=== PATIENT | female | born 1955 ===

== ENCOUNTER 2024-07-18 09:08 | Emergency (ER) | payer OTHER ==
[~2024-07-18] VITALS: Ht 160 cm; Wt 74.8 kg
[~2024-07-18 09:08] MED LIST: ACET500 PO; Cyclobenzaprine5 MG PO; IBUP400 PO
[2024-07-18 09:59] VITALS: BP 153/99
[2024-07-18] MEDS ORDERED: Ibuprofen 600 MG Tab PO ONE (10:05)
[2024-07-18] MEDS ORDERED: Acetaminophen 500 MG Tab PO ONE (10:05)
== END 2024-07-18 11:35 | disposition home or self-care (01) ==
LOC: ER 09:08
DX: M54.2 Cervicalgia (principal); M54.50 Low back pain, unspecified; Z88.5 Allergy status to narcotic agent; V54.6XXA Passenger in pick-up truck or van injured in collision with heavy transport vehicle or bus in traffic accident, initial encounter
CPT/HCPCS: 72040; 72100; 99284-25; A9270